=== PATIENT | male | born 1960 | race Caucasian/White ===

== ENCOUNTER 2016-10-24 07:07 | Outpatient (CLI) ==
[2014-08-02 17:38] VITALS: BMI 32.8
--- NOTE | 2016-10-24 08:26 | US ---
EXAM: Abdominal ultrasound limited HISTORY: Epigastric pain COMPARISON: Abdominal ultrasound 08/15/[address] abdomen pelvis 08/02/2014 TECHNIQUE: Sonographic and limited Doppler evaluation of the right upper quadrant was performed. FINDINGS: The liver is increased in echogenicity and measures 16.9 cm. The portal vein is patent. The gallbladder demonstrates minimal layering stones and sludge without pericholecystic fluid or wa ll thickening. The gallbladder wall measures 0.3 cm. Common bile duct is unremarkable and measures 0.4 cm in diameter. The pancreas is not visualized due to bowel gas. Right kidney measures 10.4 x 4 .9 x 4.9 cm with cortical thickness of 1.2 cm. IMPRESSION: 1. Layering gallstones without wall thickening or pericholecystic fluid to suggest acute cholecysti tis. 2. Increased echogenicity of the liver consistent with hepatic steatosis.
== END 2016-10-24 07:08 | disposition home or self-care (01) ==
LOC: RAD 07:07
PROVIDERS: ATTEND Nurse Practitioner Family
DX: R10.13 Epigastric pain (principal)

== ENCOUNTER 2016-11-29 07:16 | Day surgery (SDC) ==
[2014-08-02 17:38] VITALS: BMI 32.8
[2016-11-29] MEDS ORDERED: LIDOCAINE 1% 20 ML MDV ID ONE (07:40)
[2016-11-29] MEDS ORDERED: SUBLIMAZE ONE (09:10)
[2016-11-29] MEDS ORDERED: VERSED ONE (09:10)
[2016-11-29] MEDS ORDERED: DIPRIVAN 20 ML VIAL IVP ONE (09:10)
[2016-11-29] MEDS ORDERED: LIDOCAINE HCL 2% LUER-JET ONE (09:10)
[2016-11-29 10:35] VITALS: BP 140/80; TEMP 97.9
--- NOTE | 2016-11-30 11:14 | OP ---
INDICATIONS FOR PROCEDURE: 56 year old gentleman with a history of abnormal polyp presents for colonoscopy exam. He also has a history of intermittent right upper quadrant discomfort. His ultrasound did reveal Gallstones. He is scheduled for endoscopy as well. MEDICATIONS: SEE ANESTHESIA NOTES. PROCEDURE: 1. ENDOSCOPY ISABELA BIOPSY. 2. COLONOSCOPY, SNARE POLYPECTOMY. REPORT: The risks, benefits, alternatives and limitations were discussed in detail with the patient. Informed consent was obtained. After adequate sedation was achieved, the video endoscope was introduced in the posterior pharynx and esophagus under direct vision and easily advanced down to the second portion of the duodenum. I then slowly withdrew. The duodenal mucosa appeared unremarkable as did the duodenal bulb. The antrum and body were relatively unremarkable. Two biopsies from the antral wall and from the body obtained for H. Pylori test. The scope was retroflexed to look at the cardia and fundus which was unremarkable. The scope was anteflexed and withdrawn back through the esophagus which was unremarkable. The patient tolerated the procedure well with stable vital signs and pulse oximetry throughout. The patient's bed was turned a digital rectal exam revealed good tone, no masses. The colonoscope was introduced into the rectum and advanced under direct visual guidance to the cecum. The cecum was identified by the appendiceal orifice and IC valve. I then slowed withdrew the scope in circumferential manner and the examined the mucosa quite carefully. I looked on the proximal and distal sides of the folds and flexures as best as possible. In the proximal midtransverse colon there were two polyps; one was about 5mm size and sessile and the other was close to cm size pedunculated. I removed both of these by snare technique and placed in the same pathology jar. In the descending colon there is a diminutive Vitello polyp that I destroyed using a snare. No polyp tissue was left to retrieve. No other abnormalities were noted including on retroflex view of the anal canal. The prep was good. The withdrawal time was 11 minutes and 57 seconds. The patient tolerated the procedure well with stable vital signs and pulse oximetry throughout. IMPRESSION: 1. Normal upper endoscopy exam. 2. His signs and symptoms are consistent with biliary disease. 3. Three (3) colon polyps removed or destroyed as above. RECOMMENDATIONS: 1. Await H. Pylori; if positive will initiate treatment. 2. I will schedule an appointment with general surgery for evaluation of his intermittent attacks of right upper quadrant pain with known cholelithiasis. 3. Await colon polyp pathology. If everything is benign as expected, I recommend repeat colonoscopy examination again in 3 years. 4. Office visit as needed. CC: DR. DEE ROBERTO
== END 2016-11-29 10:40 | disposition home or self-care (01) ==
LOC: SURG 07:16
PROVIDERS: ATTEND Internal Medicine Gastroenterology
DX: Z09 Encounter for follow-up examination after completed treatment for conditions other than malignant neoplasm (principal); Z86.010 Personal history of colon polyps; D12.3 Benign neoplasm of transverse colon; K63.5 Polyp of colon; R10.11 Right upper quadrant pain; K80.80 Other cholelithiasis without obstruction
CPT/HCPCS: 87339

== ENCOUNTER 2016-12-01 14:12 | Emergency (ER) ==
[2016-12-01 14:17] VITALS: BP 132/77; TEMP 97.5; BMI 33.5
[2016-12-01 15:25] LABS: BASOPHILS # (AUTO) 0.1 K/uL (0-0.2); BASOPHILS % (AUTO) 0.7 % (0.0-3.0); EOSINOPHILS # (AUTO) 0.2 K/ul (0.0-0.7); EOSINOPHILS % (AUTO) 2.8 % (0.0-7.0); HEMATOCRIT 41.8 % (42.0-52.0); IMMATURE GRANULOCYTE % (AUTO) 0.1 % (0.0-5.0); LYMPHOCYTES # (AUTO) 2.1 K/uL (0.60-3.4); LYMPHOCYTES % (AUTO) 30.5 (10.0-50.0); MEAN CORPUSCULAR HEMOGLOBIN 32.3 pg (27.0-31.0); MEAN CORPUSCULAR HGB CONC 35.9 (31.8-35.4); MEAN CORPUSCULAR VOLUME 90.1 fl (80.0-94.0); MONOCYTES # (AUTO) 0.5 K/uL (0.4-2.0); MONOCYTES % (AUTO) 6.9 (0-10); PLATELET COUNT 246 10^3/uL (140-440); RED BLOOD COUNT 4.64 10^6/ul (4.70-6.10); WHITE BLOOD COUNT 6.81 K/ul (4.2-10.2)
[2016-12-01 15:39] LABS: PARTIAL THROMBOPLASTIN TIME 23.8 SEC (23.9-40.0)
--- NOTE | 2016-12-01 16:19 | ED.PDOC ---
General ED Provider: Dr. EDY MARIN Chief Complaint: Nosebleed Stated Complaint: nose bleed Time Seen by Physician: 14:13 Mode of Arrival: Walk-In Information Source: Patient Exam Limitations: No limitations Primary Care Provider: FAM PRICE Nursing and Triage Documentation Reviewed and Agree: Yes EENT Complaint Exam - Nasal Complaint/Exam Onset/Duration: today Symptoms Are: Still present (small amounts) Timing: Intermittent Initial Severity: Mild Current Severity: None Location: Right Character: Light bleeding Aggravating: Reports: None Alleviating: Reports: Pressure Associated Signs and Symptoms: Denies: Nasal congestion, Bruising, Hematuria, Hematochezia, Sinus pain, Nasal discharge, Foreign body, Abnormal coags Related History: Reports: Similar episode Bleeding Present At: Right nostril Foreign Body Present: No Septal Hematoma: No Differential Diagnoses: Coagulopathy Review of Systems - Review Of Systems Constitutional: Reports: No symptoms Eyes: Reports: No symptoms Ears, Nose, Mouth, Throat: Reports: Epistaxis Respiratory: Reports: No symptoms Cardiac: Reports: No symptoms GI: Reports: No symptoms : Reports: No symptoms Musculoskeletal: Reports: No symptoms Skin: Reports: No symptoms Neurological: Reports: No symptoms Endocrine: Reports: No symptoms Hematologic/Lymphatic: Reports: No symptoms All Other Systems: Reviewed and Negative Past Medical History - Past Medical History Previously Healthy: Yes Endocrine: Reports: Dyslipidemia Cardiovascular: Reports: None Respiratory: Reports: None Hematological: Reports: None Gastrointestinal: Reports: None Genitourinary: Reports: None Neuro/Psych: Reports: None Musculoskeletal: Reports: None Cancer: Reports: None - Surgical History General Surgical History: Reports: Unknown - Family History Family History: Reports: Unknown - Social History Smoking Status: Former smoker Hx Substance Use: No Alcohol Screening: Occasionally Physical Exam - Physical Exam Appearance: Well-appearing, No pain distress, Well-nourished Eyes: JOSEF, EOMI, Conjunctiva clear ENT: Epistaxis Respiratory: Airway patent, Breath sounds clear, Breath sounds equal, Respirations nonlabored Cardiovascular: RRR, Pulses normal, No rub, No murmur GI/: Soft, Nontender, No masses, Bowel sounds normal, No Organomegaly Musculoskeletal: Normal strength, ROM intact, No edema, No calf tenderness Skin: Warm, Dry, Normal color Neurological: Sensation intact, Motor intact, Reflexes intact, Cranial nerves intact, Alert, Oriented Psychiatric: Affect appropriate, Mood appropriate Procedures - Nasal Packing/Cautery Indications: Present: Anterior epistaxis Packing/Cautery Procedure: Right, Rhino rocket Suction Used: No Pressure Used to Control Bleeding: No Hemostasis Obtained: Yes (recheck in am) Critical Care Note - Critical Care Note Total Time (mins): 0 Course - Course Hematology/Chemistry: 12/01/16 15:20 Orders, Labs, Meds: Lab Review 12/01/16 15:20 WBC 6.81 RBC 4.64 L Hgb 15.0 Hct 41.8 L MCV 90.1 MCH 32.3 H MCHC 35.9 H RDW Coeff of Laurita 12.5 Plt Count 246 Immature Gran % (Auto) 0.1 Neut % (Auto) 59.0 Lymph % (Auto) 30.5 [place] % (Auto) 6.9 Eos % (Auto) 2.8 Baso % (Auto) 0.7 Immature Gran # (Auto) 0.0 Neut # 4.0 Lymph # 2.1 Dod[place] # 0.5 Eos # 0.2 Baso # 0.1 PT 10.0 INR 0.97 APTT 23.8 L Orders Category Date Time Status CBC W/ AUTO DIFF Stat LAB 12/01/16 15:20 Completed PARTIAL THROMBOPLASTIN TIME Stat LAB 12/01/16 15:20 Completed PT WITH INR Stat LAB 12/01/16 15:20 Completed Vital Signs: Temp Pulse Resp BP Pulse Ox 12/01/16 14:13 97.5 F L 61 16 132/77 98 Departure - Departure Time of Disposition: 16:18 (blleding stopped after rhino rocket) Disposition: HOME SELF-CARE Discharge Problem: Bleeding nose Instructions: Nosebleed (ED) Condition: Good Pt referred to PMD for follow-up: No Additional Instructions: Please call your Family Physician as soon as possible to schedule a follow-up appointment.return for eval in am before 10 am Allergies/Adverse Reactions: Allergies Iodinated Contrast Media - Oral and Adverse Reaction (Verified 12/01/16 14:16) Home Medications: Ambulatory Orders Aspirin [Aspirin Chewable] 81 mg PO DAILY 05/07/13 [place]-3 Fatty Acids [Fish Oil] 500 mg PO DAILY 05/07/13 Fenofibrate 160 mg PO DAILY 08/02/14 Pantoprazole Sodium 40 mg PO DAILY PRN 11/29/16 Pravastatin Sodium [Pravachol] 40 mg PO DAILY 11/29/16 Disposition Discussed With: Patient
== END 2016-12-01 16:55 | disposition home or self-care (01) ==
LOC: ED 14:12
DX: R04.0 Epistaxis (principal); Z79.899 Other long term (current) drug therapy
CPT/HCPCS: 36415; 85025; 85610; 85730; 99282

== ENCOUNTER 2018-09-14 11:58 | Emergency (ER) ==
[2018-09-14 11:58] VITALS: BMI 33.5
[2018-09-14 12:04] VITALS: BP 146/81; TEMP 97.6
--- NOTE | 2018-09-14 13:19 | CT ---
EXAM: CT of the chest without contrast History: Left-sided chest pain and left upper abdominal pain. Comparison: CT abdomen pelvis 09/14/2018 Technique: Multiplanar CT images through the thorax were obtained without the administration of IV c ontrast Findings: Heart size is within normal limits. Coronary calcifications. No pericardial effusion. 4 .1 cm x 1.8 cm right cardiophrenic angle cyst. Great vessels are unremarkable. No pathologically en larged thoracic lymph nodes. Calcified granulomas seen within the thorax. No consolidated pneumonia . No pleural fluid and no pneumothorax. There is subsegmental atelectasis within the right middle l obe and lingula. There is subsegmental atelectasis within the lower lungs. No suspicious lung carlos s or lung nodules. For details in the upper abdomen, please see dedicated CT abdomen pelvis done on the same day. Statu s post cholecystectomy. The liver is fatty. No acute osseous abnormalities. Prominent anterior ost eophytes within the thoracic spine. Impression: 1. No acute intrathoracic process. 2. Coronary artery disease. 3. Benign appearing right cardiophrenic angle cyst
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
--- NOTE | 2018-09-14 13:46 | ED.PDOC ---
General ED Provider: Dr. EDY MARIN Chief Complaint: Chest Wall Injury/Pain Stated Complaint: upper abdominal trauma of blunt nature a week a go negative NAUSEA, VOMITING OR SKIN RELATED CHANGES . Time Seen by Physician: 12:00 Mode of Arrival: Walk-In Information Source: Patient Exam Limitations: No limitations Primary Care Provider: FAM PRICE Nursing and Triage Documentation Reviewed and Agree: Yes Does patient meet sepsis criteria?: No System Inflammatory Response Syndrome: Not Applicable Sepsis Protocol: For patient's 13 years and over: Temp is 96.8 and below OR 101 and greater Pulse >90 BPM Resp >20/minute Acutely Altered Mental Status Are patient's symptoms suggestive of a new infection, such as: -Pneumonia -Skin, Soft Tissue -Endocarditis -UTI -Bone, Joint Infection -Implantable Device -Acute Abdominal Infection -Wound Infection -Meningitis -Blood Stream Catheter Infection -Unknown Trauma/Injury Complaint Exam - Trauma Complaint/Exam Location of Pain or Injury: Reports: Abdomen Mechanism of Injury: Reports: Blunt trauma Onset/Duration: 7 DAYS Symptoms Are: Still present Timing of Treatment: Delayed (X 7 DAYS) Initial Severity: Mild Current Severity: Mild Character: Reports: Aching Aggravating: Reports: None Alleviating: Reports: None Associated Signs and Symptoms: Denies: LOC, Confusion, Memory loss, Lethargy, Vomiting, Bleeding, Bruising, Swelling, Extremity disuse, Painful respiration, Hoarseness, Dysphagia, Hemoptysis, Significant blood loss Penetrating Injury Risk Factors: Reports: None (SEE PHOTOS NO OBVIOUS INJURY NOTED ) Related Surgical History: Reports: None Nexus Low Risk Criteria: No post-midline CS tender, No evidence of intoxicat., No Altered LOC, No focal neuro deficit, No distracting injuries Immobilization Removed Post Exam: No Glascow Coma Scale (see protocol): 15 Trauma Findings: Absent: [place] eyes, Hemotympanum, Nasal deformity, Dental tenderness, Dental injury, Dental malocclusion, Neck tenderness, Neck spasm, SubQ Air, Crepitus, Airway obstructed, Trachea displaced, Labored respirations, Decreased breath sounds, Muffled heart sounds, Weak pulses, Absent pulses, Abdominal distention, Pelvic tenderness, Pelvic instability Skin Findings: Present: Normal findings Differential Diagnoses: Sprain, Strain Review of Systems - Review Of Systems Constitutional: Reports: No symptoms Eyes: Reports: No symptoms Ears, Nose, Mouth, Throat: Reports: No symptoms Respiratory: Reports: No symptoms Cardiac: Reports: No symptoms GI: Reports: Abdominal pain : Reports: No symptoms Musculoskeletal: Reports: No symptoms Skin: Reports: No symptoms Neurological: Reports: No symptoms Endocrine: Reports: No symptoms Hematologic/Lymphatic: Reports: No symptoms All Other Systems: Reviewed and Negative Past Medical History - Past Medical History Previously Healthy: Yes Endocrine: Reports: Dyslipidemia Cardiovascular: Reports: None Respiratory: Reports: None Hematological: Reports: None Gastrointestinal: Reports: None Genitourinary: Reports: None Neuro/Psych: Reports: None Musculoskeletal: Reports: None Cancer: Reports: None - Surgical History General Surgical History: Reports: Unknown - Family History Family History: Reports: Unknown - Social History Smoking Status: Former smoker Hx Substance Use: No Alcohol Screening: Occasionally Physical Exam - Physical Exam Appearance: Well-appearing, No pain distress, Well-nourished Eyes: JOSEF, EOMI, Conjunctiva clear ENT: Ears normal, Nose normal, Oropharynx normal Respiratory: Airway patent, Breath sounds clear, Breath sounds equal, Respirations nonlabored Cardiovascular: RRR, Pulses normal, No rub, No murmur GI/: Soft, Nontender, No masses, Bowel sounds normal, No Organomegaly Musculoskeletal: Normal strength, ROM intact, No edema, No calf tenderness Skin: Warm, Dry, Normal color Neurological: Sensation intact, Motor intact, Reflexes intact, Cranial nerves intact, Alert, Oriented Psychiatric: Affect appropriate, Mood appropriate Interpretation - Radiology Interpretation Radiology Interpretation By: Radiologist Radiology Results: No acute changes Critical Care Note - Critical Care Note Total Time (mins): 0 Course - Course Orders, Labs, Meds: Orders Category Date Time Status CT ABDOMEN/PELVIS WO CONTRAST Stat RADS 09/14/18 12:[address] CHEST W/O CONTRAST Stat RADS 09/14/18 12:07 Completed Vital Signs: Temp Pulse Resp BP Pulse Ox 09/14/18 11:59 97.6 F 58 L 20 146/81 H 96 Departure - Departure Time of Disposition: 13:46 Disposition: HOME SELF-CARE Discharge Problem: Abdominal pain Qualifiers: Abdominal location: unspecified location Qualified Code(s): R10.9 - Unspecified abdominal pain Instructions: Abdominal Pain (ED) Condition: Good Pt referred to PMD for follow-up: Yes IPMP verified?: No Additional Instructions: Please call your Family Physician as soon as possible to schedule a follow-up appointment. Allergies/Adverse Reactions: Allergies Iodinated Contrast- Oral and IV Dye Adverse Reaction (Verified 09/14/18 12:03) Home Medications: Ambulatory Orders Aspirin [Aspirin Chewable] 81 mg PO DAILY 05/07/13 [place]-3 Fatty Acids [Fish Oil] 500 mg PO DAILY 05/07/13 Fenofibrate 160 mg PO DAILY 08/02/14 Pravastatin Sodium [Pravachol] 40 mg PO DAILY 11/29/16 Transfer Form Completed: No Disposition Discussed With: Patient
== END 2018-09-14 13:58 | disposition home or self-care (01) ==
LOC: ED 11:58
DX: R10.9 Unspecified abdominal pain (principal); S29.9XXA Unspecified injury of thorax, initial encounter; S39.91XA Unspecified injury of abdomen, initial encounter; W22.8XXA Striking against or struck by other objects, initial encounter
CPT/HCPCS: 99283